=== PATIENT | female | born 1945 | race Caucasian/White ===

== ENCOUNTER → 2016-11-03 | Outpatient (CLI) | payer MEDICARE ==
[~2016-11-03] MED LIST: LORA-404 PO; NF-FAMCIT PO
--- NOTE | 2016-11-03 17:01 | Diagnostic Imaging Report ---
INDICATION: Left foot pain across the top of the foot. DISCUSSION: Three views of the left foot were obtained, no comparison. Calcaneal enthesophyte is present near the insertion of the Achilles tendon, likely incidental. Mild degenerative changes are noted within the left midfoot. No fracture or dislocation. Alignment is anatomic. No radiopaque foreign body. IMPRESSION: 1. Negative left foot. Dictated by: Dictated on workstation # [id number]
== END ==
LOC: RAD 16:13
PROVIDERS: ATTEND Internal Medicine
DX: M79.672 Pain in left foot (principal)